=== PATIENT | female | born 1935 | race Caucasian/White ===

== ENCOUNTER → 2016-12-02 | Outpatient (CLI) | payer MEDICARE, OTHER ==
--- NOTE | 2016-12-03 08:59 | RAD ---
EXAM DESCRIPTION: Wrist,Right 3 Views CLINICAL HISTORY: MASS OF SKIN COMPARISON: None. IMPRESSION: 3 views of the right wrist shows no evidence of acute fracture, focal bone destruction, or joint dislocation. No joint space narrowing and irregularity of the scaphoid trapezium joint is seen suggesting osteoarthritic changes or sequela of remote prior trauma. No definite soft tissue abnormality is appreciated on plain film x-rays. Electronically signed by: Levon Richey MD 12/03/2016 8:58 AM CDT
== END | disposition home or self-care (01) ==
LOC: RAD 07:59
PROVIDERS: ATTEND Orthopaedic Surgery
DX: R22.9 Localized swelling, mass and lump, unspecified (principal)

== ENCOUNTER → 2017-01-12 | Outpatient (CLI) | payer MEDICARE, OTHER | END | disposition home or self-care (01) | LOC: GMAL 10:29 | PROVIDERS: ATTEND Family Medicine | DX: D51.3 Other dietary vitamin B12 deficiency anemia (principal); E03.9 Hypothyroidism, unspecified; E55.9 Vitamin D deficiency, unspecified ==

== ENCOUNTER → 2017-06-02 | Outpatient (CLI) | payer MEDICARE, OTHER | LOC: GMAJ 16:34 | PROVIDERS: ATTEND Family Medicine | DX: L03.114 Cellulitis of left upper limb (principal); I10 Essential (primary) hypertension; E11.9 Type 2 diabetes mellitus without complications ==

== ENCOUNTER → 2017-06-07 | Outpatient (CLI) | payer MEDICARE, OTHER ==
--- NOTE | 2017-06-12 19:52 | MAM ---
EXAM DESCRIPTION: 3D Screening BILATERAL : Digital Mammography. CLINICAL HISTORY: 82 years Female SCREENING . No complaints. Mother with breast cancer. Postmenopausal. No HRT. COMPARISON: 2-D digital screening bilateral study 03/02/2016. Report from prior examination also reviewed. TECHNIQUE: Bilateral CC and MLO projection full-field images, 3-D tomosynthesis digital mammographic technique. Also bilateral synthesized CC/ MLO full-field images. CAD not utilized. FINDINGS: The breast parenchymal density pattern is: Heterogeneously dense breast tissue, which may obscure small masses. No skin thickening or nipple retraction . Bilateral axillary lymph nodes. Bilateral scattered microcalcifications. Bilateral coarse calcifications. Multiple nodular densities bilaterally are stable. Bilateral rounded mass densities with smooth borders similar density to the surrounding fibroglandular tissues but slightly enlarged since the prior study. These are most likely cysts. No focal, stellate mass or density, focal asymmetry , and no suspicious microcalcifications bilaterally. IMPRESSION: BI-RADS CATEGORY: 2 - BENIGN FINDINGS. FOLLOW UP: Routine digital bilateral screening, one year interval from May 2017. Written communication explaining the IMPRESSION and follow-up, will be mailed to the patient and referring health care provider. According to the [employer], yearly mammograms are recommended starting at age 40 and continuing as long as a woman is in good health. Any breast change noted on a breast self-exam should be reported promptly to the patient's healthcare provider. Breast MRI is recommended for women with an approximately 20-25% or greater lifetime risk of breast cancer, including women with a strong family history of breast or ovarian cancer and women who have been treated for Hodgkin's disease. A negative mammographic report should not delay tissue diagnosis in patients with significant clinical history or physical findings. Extremely dense breast tissue limits the sensitivity of digital mammography. Electronically signed by: Alexis Montgomery MD 06/12/2017 7:51 PM [employer]OWER CR[employer]
== END ==
LOC: MAMMO 11:30
PROVIDERS: ATTEND Family Medicine
DX: Z12.31 Encounter for screening mammogram for malignant neoplasm of breast (principal)

== ENCOUNTER → 2018-09-20 | Outpatient (CLI) | payer MEDICARE, OTHER ==
--- NOTE | 2018-09-20 20:33 | US ---
EXAM DESCRIPTION: Breast,Bilateral: Ultrasound CLINICAL HISTORY: 83 yearsFemaleABNORMAL MAMMO COMPARISON: Bilateral screening digital breast tomosynthesis 08/31/2018. TECHNIQUE: Transcutaneous scanning of the bilateral breast utilizing rogel-scale and Doppler modes. Scanning performed by the department sales manager and Dr. Montgomery. FINDINGS: Ultrasound: Bilateral breasts demonstrate mostly fatty echotexture with minimal fibroglandular tissues. Scanning retroareolar right breast. At the 9:00 position is a 7.8 x 5.9 mm cyst with typical sonographic presentation. Second cyst measures 5.7 x 4.8 mm in the adjacent soft tissues. 4 centimeters from the nipple at the 9:00 position, is an anechoic structure with typical cystic features measuring 5 mm. Adjacent to this cyst is a hypoechoic object with mostly circumscribed margins internal echogenicity and posterior acoustic shadowing. No increased vascularity. This could represent a complicated cyst lymph node or fibroadenoma. Dimensions are 4.8 x 4.7 cm. No dominant solid mass in the right breast. In the retroareolar left breast are multiple anechoic circumscribed object with echogenic circumscribed margins wider than tall orientation, and posterior acoustic enhancement. These are consistent with cysts. Nonvascular. IMPRESSION: Bilateral cysts in the anterior breast. 1 lesion in the right breast 4 cm from the nipple could represent a complicated cyst or a solid lesion, most likely benign. ASSESSMENT: BI-RADS CATEGORY: 3 - PROBABLY BENIGN. MANAGEMENT: Short interval (6-month) follow-up diagnostic right breast mammogram and targeted right breast ultrasound. The FINDINGS and the FOLLOW-UP plan were reviewed in person with the patient after the examination. Written communication explaining the IMPRESSION and FOLLOW-UP will be mailed to the patient and referring care provider. Electronically signed by: Alexis Montgomery MD 09/20/2018 8:31 PM CDT
== END ==
LOC: US 10:00
PROVIDERS: ATTEND Family Medicine
DX: N60.01 Solitary cyst of right breast (principal); N60.02 Solitary cyst of left breast

== ENCOUNTER → 2018-10-16 | Outpatient (CLI) | payer MEDICARE, OTHER | LOC: GMAL 11:14 | PROVIDERS: ATTEND Family Medicine | DX: D51.3 Other dietary vitamin B12 deficiency anemia (principal); E03.9 Hypothyroidism, unspecified; E55.9 Vitamin D deficiency, unspecified; I10 Essential (primary) hypertension; E11.9 Type 2 diabetes mellitus without complications; E78.49 Other hyperlipidemia ==

== ENCOUNTER 2019-02-28 15:20 | Emergency (ER) | payer MEDICARE, OTHER ==
[2019-02-28] MEDS: SODIUM CHLORIDE 0.9% (FLUSH) 10 ML SYG IV PRN (15:44)
[2019-02-28] MEDS: ASPIRIN TABLET 325 MG TAB PO ONE (15:46)
[2019-02-28] MEDS: ONDANSETRON INJ 4 MG/2 ML VIAL IV ONE (15:46)
[2019-02-28] MEDS: MORPHINE SULFATE INJ 10 MG/ML VIAL IV ONE (15:46)
--- NOTE | 2019-02-28 16:04 | RAD ---
EXAM DESCRIPTION: Chest,1 View CLINICAL HISTORY: 84 years Female, cp COMPARISON: Previous chest x-ray April 20, 2018 TECHNIQUE: AP portable chest. FINDINGS: Heart size is large with normal pulmonary vascularity. Minimal infiltrate or scarring in the right apex. Apical lordotic view may be helpful. This area appeared clear on the previous study. No pulmonary mass or worrisome nodule. No pneumothorax or pleural effusion. Bones are unremarkable. IMPRESSION: Large heart without congestive failure. Minimal scarring or infiltrate in the right apex. Electronically signed by: Jayson Boone MD 02/28/2019 4:02 PM [facility]
--- NOTE | 2019-02-28 16:18 | ED.PDOC ---
History of Present Illness - General Chief Complaint: Chest Pain/AZ Stated Complaint: CHEST TIGHTNESS Time Seen by Provider: 02/28/19 15:34 Source: patient, RN notes reviewed, Vital Signs reviewed, family - - History of Present Illness Timing/Duration: 7-24 hours - constant Severity/Quality: moderate, pressure Location: substernal, central, back - back pain is chronic but worsening Chest Pain Radiation: no radiation Activities at Onset: none Prior Chest Pain/Cardiac Workup: cardiolye scan - normal, 1 month ago, echocardiography - results are pending Improving Factors: nothing Worsening Factors: nothing Nitro Today/Relief: no nitro taken today Aspirin Treatment Today: no aspirin today Associated Symptoms: back pain, fatigue Allergies/Adverse Reactions: Allergies Sulfa Antibiotics Allergy (Mild, Verified 04/07/15 09:51) Home Medications: Ambulatory Orders Carvedilol [Coreg] 25 mg PO BID 12/23/14 Cholecalciferol [Vitamin D3] 1,000 unit PO BEDTIME 12/23/14 Furosemide [Lasix] 20 mg PO DAILY 12/23/14 Glyburide 10 mg PO BID 12/23/14 Krill Oil [Krill Oil [place]-3] 1 cap PO BEDTIME 12/23/14 Levothyroxine Sodium [Synthroid] 50 mcg PO DAILY 12/23/14 Losartan Potassium & Hydrochlo [Hyzaar 100-25 mg] 1 tab PO DAILY 12/23/14 Potassium Chloride [Klor-Con] 40 meq PO DAILY 12/23/14 Vitamin E [E-400] 400 unit PO BEDTIME 12/23/14 Amlodipine Besylate 5 mg PO DAILY 02/28/19 Apixaban [Eliquis] 5 mg PO BID 02/28/19 Empagliflozin-Linagliptin [Glyxambi 25-5 mg] 1 tab PO QAM 02/28/19 Insulin Glargine [Toujeo Solostar] 18 unit SC QAM 02/28/19 Methylcellulose (Laxative) [Citrucel Fiber Laxative] 1 pow PO DAILY 02/28/19 Nitroglycerin 0.4 mg SL PRN PRN 02/28/19 Review of Systems - Review of Systems Constitutional: States: see HPI, weakness EENTM: States: no symptoms reported Respiratory: States: see HPI, short of breath Cardiology: States: chest pain. Denies: edema, palpitations, syncope Gastrointestinal/Abdominal: States: no symptoms reported Genitourinary: States: no symptoms reported Musculoskeletal: States: see HPI, back pain Skin: States: no symptoms reported Neurological: States: no symptoms reported Endocrine: States: no symptoms reported Hematologic/Lymphatic: States: no symptoms reported All other Systems: Reviewed and Negative Past Medical History (General) - Patient Medical History Hx Stroke: Yes - "light stroke" Hx Cardiac Disorders: Yes - atrial fibrillation Hx Congestive Heart Failure: No Hx Hypertension: Yes Hx Diabetes: Yes - Vaccination History Hx Influenza Vaccination: Yes - 2019 Hx Pneumococcal Vaccination: Yes - 2018 - Social History Hx Tobacco Use: No Hx Alcohol Use: No Hx Substance Use: No Hx Substance Use Treatment: No Hx Depression: No - Female History Patient : No Family Medical History - Family History Mother Family History: Unknown Physical Exam - Physical Exam General Appearance: Alert, Anxious, Obese, Well Developed, Well Groomed, Well Hydrated, Well Nourished Eyes, Ears, Nose, Throat Exam: PERRL/EOMI, normal ENT inspection, pharynx normal Neck: non-tender, full range of motion, supple, normal inspection Respiratory: chest non-tender, lungs clear, normal breath sounds, no respiratory distress, no accessory muscle use Cardiovascular/Chest: normal peripheral pulses, regular rate, rhythm, no edema, no gallop, no JVD, no murmur Peripheral Pulses: radial,right: 2+, radial,left: 2+ Gastrointestinal/Abdominal: normal bowel sounds, non tender, soft, no organomegaly, no pulsatile mass, other - A she was morbidly obese Extremity: normal range of motion, non-tender, normal inspection Neurologic: eeler II-XII nml as tested, no motor/sensory deficits, alert, normal mood/affect, oriented x 3 Skin Exam: normal color, warm/dry Lymphatic: no adenopathy Progress - Progress Progress: differential diagnosis: Acute AZ, unstable angina, pneumonia, costochondritis among others. 02/28/19 18:35 patient's chest pain has resolved. Admission was offered and patient refused stating she desired to go and see her injection wax molder n explained the risksn and she voiced understanding but does not want admission hospital. The patient's initial cardac stress test was negative. she had an ultrasound in the test result is pending.plan discharge home at this time Riky Wells M.D. #[id number] - Results/Orders Results/Orders: 02/28/19 15:36 Sodium Chloride 0.9% (Flush) [Saline Flush Syringe] 10 ml IV PRN PRN EKG Stat Pulse Ox Stat Laboratory Results - last 24 hr 02/28/19 15:25 WBC 10.2 RBC 5.29 Hgb 16.2 H Hct 48.2 H MCV 91.1 MCH 30.6 MCHC 33.5 RDW 13.6 Plt Count 268 MPV 8.1 Absolute Neuts (auto) 6.10 Absolute Lymphs (auto) 3.00 Absolute Monos (auto) 0.80 Absolute Eos (auto) 0.10 Absolute Basos (auto) 0.10 Neutrophils % 60.4 Lymphocytes % 29.4 Monocytes % 8.1 Eosinophils % 1.3 Basophils % 0.8 PT 10.5 INR 1.05 PTT (SP) 28.3 Sodium 139 Potassium 3.2 L Chloride 100 L Carbon Dioxide 27 Anion Gap 15.2 BUN 24 H Creatinine 1.36 H BUN/Creatinine Ratio 17.6 Random Glucose 92 Serum Osmolality 281.2 Calcium 9.6 Magnesium 2.1 Creatine Kinase 53 CK-MB (CK-2) 2.1 CK-MB (CK-2) % Not Reportable Troponin I < 0.02 B-Natriuretic Peptide 171.0 H DESCRIPTION: Chest,1 View CLINICAL HISTORY: 84 years Female, cp COMPARISON: Previous chest x-ray April 20, 2018 TECHNIQUE: AP portable chest. FINDINGS: Heart size is large with normal pulmonary vascularity. Minimal infiltrate or scarring in the right apex. Apical lordotic view may be helpful. This area appeared clear on the previous study. No pulmonary mass or worrisome nodule. No pneumothorax or pleural effusion. Bones are unremarkable. IMPRESSION: Large heart without congestive failure. Minimal scarring or i nfiltrate in the right apex. Electronically signed by: Jayson Boone MD 02/28/2019 4:02 Departure - Departure Clinical Impression: Chest pain Qualifiers: Chest pain type: unspecified Qualified Code(s): R07.9 - Chest pain, unspecified Back pain Qualifiers: Chronicity: chronic Back pain laterality: bilateral Sciatica presence: without sciatica Time of Disposition: 18:39 Disposition: Discharge to Home or Self Care Condition: Good Departure Forms: ED Discharge - Pt. Copy, Patient Portal Self Enrollment Instructions: DI for Chest Pain Referrals: Celso Vitale III, MD [Primary Care Provider] - 1-2 Days Home Medications: Ambulatory Orders Carvedilol [Coreg] 25 mg PO BID 12/23/14 Cholecalciferol [Vitamin D3] 1,000 unit PO BEDTIME 12/23/14 Furosemide [Lasix] 20 mg PO DAILY 12/23/14 Glyburide 10 mg PO BID 12/23/14 Krill Oil [Krill Oil [place]-3] 1 cap PO BEDTIME 12/23/14 Levothyroxine Sodium [Synthroid] 50 mcg PO DAILY 12/23/14 Losartan Potassium & Hydrochlo [Hyzaar 100-25 mg] 1 tab PO DAILY 12/23/14 Potassium Chloride [Klor-Con] 40 meq PO DAILY 12/23/14 Vitamin E [E-400] 400 unit PO BEDTIME 12/23/14 Amlodipine Besylate 5 mg PO DAILY 02/28/19 Apixaban [Eliquis] 5 mg PO BID 02/28/19 Empagliflozin-Linagliptin [Glyxambi 25-5 mg] 1 tab PO QAM 02/28/19 Insulin Glargine [Toujeo Solostar] 18 unit SC QAM 02/28/19 Methylcellulose (Laxative) [Citrucel Fiber Laxative] 1 pow PO DAILY 02/28/19 Nitroglycerin 0.4 mg SL PRN PRN 02/28/19
[2019-02-28 18:46] VITALS: BP 151/82; TEMP 97; O2SAT 95
== END 2019-02-28 18:45 | disposition home or self-care (01) ==
LOC: ER 15:20
DX: R07.9 Chest pain, unspecified (principal); M54.6 Pain in thoracic spine; G89.29 Other chronic pain; R06.02 Shortness of breath; I48.91 Unspecified atrial fibrillation; I10 Essential (primary) hypertension; E11.9 Type 2 diabetes mellitus without complications; E66.01 Morbid (severe) obesity due to excess calories; Z68.36 Body mass index [BMI] 36.0-36.9, adult; Z86.73 Personal history of transient ischemic attack (TIA), and cerebral infarction without residual deficits; Z79.4 Long term (current) use of insulin; Z79.01 Long term (current) use of anticoagulants; Z79.899 Other long term (current) drug therapy; Z88.2 Allergy status to sulfonamides
CPT/HCPCS: 36415; 71045; 80048; 82550; 82553; 83880; 84484; 85025; 85610; 85730; 93005; 94760; J2270; J2405

== ENCOUNTER → 2019-05-02 | Outpatient (CLI) | payer MEDICARE, OTHER ==
--- NOTE | 2019-05-03 12:54 | MAM ---
EXAM DESCRIPTION: 3D Diagnostic, Right (accession [id number]), Breast,Right (accession [id number]): Ultrasound CLINICAL HISTORY: 84 yearsFemale6 month follow up . Six-month follow-up probably benign finding right breast mammogram and directed ultrasound. No personal history of breast cancer. Mother with breast cancer at age 81. Menarche age 14. Childbirth age 27. Postmenopausal age unknown. No HRT Lifetime risk of developing breast cancer (Tyrer-Cuzick model)(%): 3.6. COMPARISON: Bilateral screening digital breast tomosynthesis August 2018. Bilateral directed breast ultrasound September 2018. TECHNIQUE: Right breast LM, CC, and MLO projection full-field images, digital tomosynthesis technique. Bilateral 2-D digital full-field images: LM, CC, and MLO projections. CAD available for 2-D images.. Transcutaneous scanning of the right breast utilizing rogel-scale and Doppler modes. Scanning performed by the vertical borer and Dr. Montgomery. FINDINGS: The breast parenchymal density pattern is: Scattered areas of fibroglandular density. No skin thickening or nipple retraction *or calcifications and solitary parenchymal calcifications. Coarse calcification posterior breast. Small mass densities again seen in the anterior third of the right breast at the 9:00 position. No new focal, stellate mass or density, focal asymmetry , and no suspicious microcalcifications right breast. Ultrasound: Scanning 9:00 position 4 cm from the nipple. Mostly fatty tissue with minimal fibroglandular tissue. Larger 7.5 mm structure with well-defined echogenic marsh, no internal echoes and posterior acoustic enhancement appears more cystlike on the current study. Other cysts are seen in the retroareolar breast at 9:00 and 4 cm from the nipple at 9:00. 1 hypoechoic mass 4 cm from the nipple and 9:00 circumscribed margins and taller orientation with neutral posterior acoustics, 5.4 mm diameter. Stable from the prior study. Also a stable 1 cm diameter retroareolar cyst. IMPRESSION: Benign exam. BIRAD CATEGORY: 2 BENIGN FINDINGS. RECOMMENDATIONS: FOLLOW UP: Return to routine digital bilateral mammographic screening, after August 2019. Written communication explaining the IMPRESSION and follow-up, will be mailed to the patient and referring health care provider. The FINDINGS and the FOLLOW-UP plan were reviewed in person with the patient after the examination. According to the [employer], yearly mammograms are recommended starting at age 40 and continuing as long as a woman is in good health. Any breast change noted on a breast self-exam should be reported promptly to the patient's healthcare provider. Breast MRI is recommended for women with an approximately 20-25% or greater lifetime risk of breast cancer, including women with a strong family history of breast or ovarian cancer and women who have been treated for Hodgkin's disease. A negative mammographic report should not delay tissue diagnosis in patients with significant clinical history or physical findings. Extremely dense breast tissue limits the sensitivity of digital mammography. Electronically signed by: Alexis Montgomery MD 05/03/2019 12:48 PM [facility]
== END ==
LOC: MAMMO 13:11
PROVIDERS: ATTEND Family Medicine
DX: N60.11 Diffuse cystic mastopathy of right breast (principal)
CPT/HCPCS: 76641; 77065; G0279

== ENCOUNTER → 2019-09-05 | Outpatient (CLI) | payer MEDICARE, OTHER | LOC: GMAL 14:45 | PROVIDERS: ATTEND Family Medicine | DX: D51.3 Other dietary vitamin B12 deficiency anemia (principal); R53.83 Other fatigue; E55.9 Vitamin D deficiency, unspecified; I10 Essential (primary) hypertension; E11.9 Type 2 diabetes mellitus without complications; Z79.899 Other long term (current) drug therapy ==

== ENCOUNTER → 2019-09-06 | Outpatient (CLI) | payer MEDICARE, OTHER ==
--- NOTE | 2019-09-06 14:14 | US ---
EXAM DESCRIPTION: Carotid Duplex: ULTRASOUND. CLINICAL HISTORY: 84 years Female SYNCOPE AND COLLAPSE COMPARISON: None. TECHNIQUE: Transcutaneous scanning utilizing rogel-scale and Doppler modes to evaluate the bilateral carotid systems and vertebral arteries. Percentage of diameter of stenosis or no stenosis recorded will be based upon NASCET criteria. FINDINGS: Peak systolic/end diastolic (CM-Sec) CCA Right 96/13 Left 110/12. ICA Right proximal 69/11, mid 72/15. Left proximal 60/10, Distal 72/12. Vertebral Right 45/5 Left 50/8. ECA (PS Only) Right 75 left 85. ICA/CCA peak systolic ratio: Right 0.8 Left 0.7 ICA/CCA end diastolic ratio: Right 1.2 Left 1.0 Vertebral arteries: antegrade flow. Comments Comments: Atherosclerotic calcification bilateral common carotid bifurcations and the bilateral proximal ICAs. Proximal right ICA: 24% area stenosis and 29% diameter stenosis. Left common carotid bulb: 21% area stenosis and 50% diameter stenosis. Left proximal ICA: 25% area stenosis and 36% diameter stenosis. IMPRESSION: 1. Doppler evaluation of the bilateral carotid systems and vertebral arteries shows no hemodynamically significant stenoses. 2. Moderate amount of plaque in the carotid bifurcations bilaterally. Bilateral vertebral arteries showed antegrade-cephalad flow. Electronically signed by: Alexis Montgomery MD 09/06/2019 2:12 PM CDT
== END ==
LOC: US 09:18
PROVIDERS: ATTEND Family Medicine
DX: I65.23 Occlusion and stenosis of bilateral carotid arteries (principal); R55 Syncope and collapse

== ENCOUNTER → 2019-09-07 | Outpatient (CLI) | payer MEDICARE, OTHER ==
--- NOTE | 2019-09-08 20:13 | MRI ---
EXAM DESCRIPTION: Brain w/wo Contrast: Magnetic Resonance Imaging. CLINICAL HISTORY: 84 years Female syncope COMPARISON: Noncontrast brain MRI scan June 2011. TECHNIQUE: Multiplanar, high-field MRI, multiple conventional sequences, without and with gadolinium IV contrast, 1 mL per 5 kg body weight. No adverse reactions. Multiple axial diffusion sequences. FINDINGS: Circumscribed slightly lobulated extra-axial mass in the posterior fossa impressing on the left cerebellar hemisphere with relatively uniform enhancement and broad meningeal attachment. Dimensions are 1.8 x 1.6 x 1.3 x 1.2 cm. On the prior study dimensions were 1.6 x 1.3 x 1.3 x 1.1 cm. Partial diffusion restriction on the margins of the mass. No hemorrhage in the mass. Other than mass effect, no abnormal signal enhancement in the adjacent cerebellar hemisphere. Abnormal foci of hyperintense FLAIR and T2-weighted signal in the posterior left frontal lobe carter radiata white matters and the posterior right frontal carter radiata white matter. Normal contrast enhancement. No hemorrhage, no cerebral edema, no mass-effect. Focal signal in the posterior left basal ganglia. Normal signal in the right basal ganglia. No hemorrhage, no cerebral edema, no mass-effect. Normal contrast enhancement. Focal hyperintense FLAIR signal in the richard. No mass effect. Normal contrast enhancement. Remainder of the Brainstem and right cerebellar hemispheres. Normal contrast enhancement. Concordance of the diffusion and non-diffusion sequences with no evidence of acute or subacute infarction. Cortical sulci, ventricles, and other CSF spaces, and the subdural spaces are normally configured for patient's age. No effacement or displacement. No midline shift. No extra-axial hemorrhage. Normal contrast enhancement. Normal flow signal void in the major vessels of the [place], and the venous sinuses. IACs are symmetric bilaterally. Normal signal in the bilateral mastoid air cells. No mass effect in the bilateral Cerebellopontine angles. Normal contrast enhancement. Pituitary gland occupies most of the sella. Normal contrast enhancement. Base of the cerebellar tonsils is at the level of the foramen magnum. Normal signal in the paranasal sinuses. The bony calvarium is intact. IMPRESSION: 1. Extra-axial left posterior fossa mass impressing on the left cerebellar hemisphere has enlarged slightly since the prior study 8 years ago. Location, morphology, slow interval growth and contrast enhancement characteristics are consistent with meningioma. 2. Small vessel and age related changes in the periventricular white matter and posterior left basal ganglia. Smaller lesions in the richard. No mass effect, no cerebral edema, no hemorrhage, and normal contrast enhancement. 3. Normal noncontrast MRI diffusion study with no evidence of significant ischemia or acute or subacute infarction. Electronically signed by: Alexis Montgomery MD 09/08/2019 8:12 PM CDT
== END ==
LOC: MRI 11:00
PROVIDERS: ATTEND Family Medicine
DX: R55 Syncope and collapse (principal); G93.9 Disorder of brain, unspecified; R90.82 White matter disease, unspecified

== ENCOUNTER → 2020-01-28 | Outpatient (CLI) | payer MEDICARE, OTHER | LOC: GMAL 14:42 | PROVIDERS: ATTEND Family Medicine | DX: E11.9 Type 2 diabetes mellitus without complications (principal); E78.49 Other hyperlipidemia; Z79.899 Other long term (current) drug therapy ==